=== PATIENT | female | born 1980 | race Caucasian/White ===

== ENCOUNTER 2018-05-14 08:41 | Day surgery (SDC) | payer OTHER ==
[~2018-05-14] VITALS: Ht 165.1 cm; Wt 76.5 kg
[2018-05-14] VITALS (17 sets, daily range): BP systolic 100–138; BP diastolic 57–74; PULSE 76–92; RESP 7–28; Ht 165.1 cm; Wt 76.5 kg
--- NOTE | 2018-05-14 07:32 | HPN ---
Date/Time of Note Date/Time of Note DATE: 05/14/18 TIME: 07:32 Interval H&P Admission Note Pt. seen H&P reviewed: No system changes KYM DEL CID MD May 14, 2018 07:32
[~2018-05-14 08:41] MED LIST: DEXAMETHASONE 4 MG/ML 5 ML INJ ONE; METOCLOPRAMIDE 10 MG INJ ONE
[2018-05-14] MEDS ORDERED: FENTAnyl 50 MCG/ML VIAL ONE ×2 (08:59)
[2018-05-14] MEDS ORDERED: PROPOFOL 20 ML ONE (09:00)
[2018-05-14] MEDS ORDERED: SUCCINYLCHOLINE CHLORIDE 100 MG/5 ML SYG IV ONE (09:00)
[2018-05-14] MEDS ORDERED: MIDAZOLAM 1 MG/ML 2 ML INJ ONE (09:00)
[2018-05-14] MEDS ORDERED: ROCURONIUM 50 MG INJ ONE (09:01)
[2018-05-14] MEDS ORDERED: LIDOCAINE 2% (SDV) 5 ML INJ ONE (09:01)
[2018-05-14] MEDS ORDERED: ONDANSETRON 4 MG INJ ONE (09:01)
[2018-05-14] MEDS ORDERED: CEFAZOLIN 1 GM INJ ONE (09:02)
[2018-05-14] MEDS ORDERED: ROPIVACAINE 0.5 % 30 ML VIAL ONE ×2 (09:04→09:56)
[2018-05-14] MEDS ORDERED: IBUP-1542 PO (09:09)
[2018-05-14] MEDS ORDERED: LABETALOL HCL 20MG INJ ONE (09:23)
[2018-05-14] MEDS ORDERED: POLYMYXIN/BACITRACIN 1L IRRIG ONE (09:56)
[2018-05-14] MEDS ORDERED: POVIDONE IODINE 10% 28.4 GM OINT ONE (09:56)
--- NOTE | 2018-05-14 10:05 | PREAC ---
Date/Time of Note Date/Time of Note DATE: 05/14/18 TIME: 10:04 Anesthesia Eval and Record Evaluation Time Pre-Procedure Interview DATE: 05/14/18 TIME: 10:04 Age 37 Sex female NPO: 8 hrs Preoperative diagnosis R ACl tear and knee fx Planned procedure R knee ACL reconstruction and tibial plateau repair Past Medical History Past Medical History: None Surgery & Anesthesia Issues No known issue Meds Anticoagulation: No Beta Venu within 24 hr: No Reason Beta Venu not given: Pt. not on B-Venu Reported Medications Ibuprofen* (Ibuprofen*) 600 Mg Tablet, 600 MG PO DAILY PRN for PAIN AND/OR INFLAMMATION, TAB 05/14/18 Meds reviewed: Yes Allergies Coded Allergies: No Known Allergy (Unverified , 05/14/18) PER PT Allergies Reviewed: Yes Labs/Studies Labs Reviewed: Reviewed by anesthesiologist test: Negative Pre-procedure Exam Last vitals Vital Signs Date Temp Pulse Resp B/P (MAP) Pulse Ox O2 O2 Flow FiO2 Time Delivery Rate 05/14/18 97.8 76 16 100/60 96 09:36 (73) Airway: Adequate mouth opening, Adequate thyromental dist Mallampati: Mallampati III Teeth: Normal Lung: Normal Heart: Normal ASA Physical Status ASA physical status: 2 Emergency: None Planned Anesthetic General/MAC: ETT Planned Pain Management Single shot nerve block, Parenteral pain med Pre-operative Attestations Prior to commencing anesthesia and surgery, the patient was re-evaluated, there was verification of: *The patient's identity *The results of appropriate recent lab work and preoperative vital signs *The above evaluation not changing prior to induction *Anesthetic plan, risk benefits, alternative and complications discussed with patient/family; questions answered; patient/family understands, accepts and wishes to proceed. VINICIO DARDEN MD May 14, 2018 10:05
[2018-05-14] MEDS ORDERED: FENTAnyl 50 MCG/ML VIAL IV PRN ×2 (10:30)
[2018-05-14] MEDS ORDERED: HYDROmorphONE 1 MG/5 ML IV SYRINGE IV PRN ×3 (10:30)
[2018-05-14] MEDS ORDERED: MIDAZOLAM 1 MG/ML 2 ML INJ IV PRN (10:30)
[2018-05-14] MEDS ORDERED: DIPHENHYDRAMINE 50 MG INJ IV PRN (10:30)
[2018-05-14] MEDS ORDERED: MEPERIDINE 25 MG INJ IV PRN (10:30)
[2018-05-14] MEDS ORDERED: ONDANSETRON 4 MG INJ IV PRN (10:30)
[2018-05-14] MEDS ORDERED: PROVENTIL HFA 6.7GM INHALER ONE (10:41)
--- NOTE | 2018-05-14 14:35 | PAC ---
Date/Time of Note Date/Time of Note DATE: 05/14/18 TIME: 14:34 Post-Anesthesia Notes Post-Anesthesia Note Last documented vital signs Vital Signs Date Temp Pulse Resp B/P (MAP) Pulse Ox O2 O2 Flow FiO2 Time Delivery Rate 05/14/18 97.8 98 76 84 16 16 100/60 96 100 face 09:36 142 (73) 116/ mask 8L 8 62 Activity: WNL Respiratory function: WNL Cardiovascular function: WNL Mental status: Baseline Pain reasonably controlled: Yes Hydration appropriate: Yes Nausea/Vomiting absent: Yes NOE CHAMBERS May 14, 2018 14:35
[2018-05-14] MEDS ORDERED: KETOROLAC 30 MG INJ IV SCH (16:00)
[2018-05-14] MEDS ORDERED: morphine 2 MG INJ IV PRN (16:00)
[2018-05-14] MEDS ORDERED: OXYCODONE/ACETAMINOPHEN (10/325) TAB PO ONE (17:30)
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
== END 2018-05-14 19:14 | disposition home or self-care (01) ==
LOC: SDS 08:41
PROVIDERS: ATTEND Orthopaedic Surgery
DX: S83.511D Sprain of anterior cruciate ligament of right knee, subsequent encounter (principal); S82.141D Displaced bicondylar fracture of right tibia, subsequent encounter for closed fracture with routine healing; S82.111D Displaced fracture of right tibial spine, subsequent encounter for closed fracture with routine healing; V49.9XXD Car occupant (driver) (passenger) injured in unspecified traffic accident, subsequent encounter
CPT/HCPCS: 29856; 29888; 73580; 82306; J0690; J1100; J1170; J2175; J2250; J2405; J2765; J2795; J3010; Z7512; Z7610